=== PATIENT | female | born 1970 | race Caucasian/White ===

== ENCOUNTER 2023-12-03 11:53 | Emergency (ER) | payer OTHER, SELFPAY ==
[2023-12-03 12:01] VITALS: BP 146/99
[2023-12-03] MEDS: DECADRON 10 MG IV (13:37)
[2023-12-03] MEDS: TORADOL 15 MG IV (13:38)
[2023-12-03] MEDS: VALIUM INJECTION 5 MG IV (13:38)
[2023-12-03 13:40] VITALS: BP 133/83
[2023-12-03 14:00] VITALS: BP 131/84
--- NOTE | 2023-12-03 14:51 | ED.GENMED ---
History of Present Illness
General
Chief Complaint: Back Pain
Source: patient
Time Seen by Provider: 12/03/23 13:23
History of Present Illness
History of Present Illness:
53-year-old female presents complaining of left lower back pain worsening over the past several days. She tried lidocaine patches and cyclobenzaprine at home without any relief. No bowel or bladder dysfunction. No fever. No perianal anesthesia.
She denies any leg pain.
Past History
Past History
ED Past Medical History: GERD, HTN, Hypercholesterolemia and Other (Von Willebrand's disease)
ED Past Surgical History: Gynecological
Social History
Tobacco: Non-smoker
Alcohol: None
Drug: None
Personal:
Living: with family
Phy Exam
Physical Exam
Physical Exam:
General: Well-appearing female no acute respiratory
HEENT: Normocephalic atraumatic
Heart: Regular rate and rhythm no murmurs
Lungs: Clear no wheeze
Musculoskeletal exam: Patient is tender over the left paraspinous area of the lower lumbar spine and the SI joint. Good range of motion bilateral.
Neurological exam: Negative straight leg raise bilaterally. Good sensation and strength to the lower extremities bilaterally
Skin is warm no rash
Course
Orders/Labs/Results
Orders:
Orders
12/03/23 12:03
CR Lumbar Spine Comp Min 4 Vw* Urgent
Comment:
Reason For Exam: lower back pain
12/03/23 13:33
Dexamethasone Sod Phosphate [Decadron] 10 mg IV NOW STA
Ketorolac [Toradol] 15 mg IV NOW STA
diazePAM [Valium Injection] 5 mg IV NOW STA
Vital Signs
Initial and Last Documented VS:
Initial Vital Signs
Temp Pulse Resp BP Pulse Ox
98.1 F 99 20 146/99 98
12/03/23 12:01 12/03/23 12:01 12/03/23 12:01 12/03/23 12:01 12/03/23 12:01
Last Documented Vital Signs
Temp Pulse Resp BP Pulse Ox
98.1 F 99 20 131/84 96
12/03/23 12:01 12/03/23 12:01 12/03/23 12:01 12/03/23 14:00 12/03/23 14:45
MDM/Problems Addressed
Differential Diagnosis Includes:
Lower back pain. Consider muscular strain versus degenerative disc disease. X-rays reviewed through triage which are negative for acute finding but do demonstrate mild degenerative disease. Will try IV medication
*Critical Care Note
Total Time (30-74mins, 75-104mins- exclusive of procedures): Not Applicable
Update Note
Update Note:
Patient reevaluated after given medicine here and he is feeling much better. Do not suspect any cauda equina given the lack of red flag signs of saddle anesthesia bowel bladder dysfunction. Do not factious source.
ED Attending Note
-
Portions of this chart may have been created with voice recognition software.� Occasional wrong word or��sound alike� substitutions may have occurred due to the inherent limitations of voice recognition software.
Discharge Plan
Departure
Patient Disposition: Home (Routine Discharge)
Date of Disposition: 12/03/23
Time of Disposition: 14:54
Patient with high blood pressure during this ER visit?: No
Discharge Problem:
Low back pain
Instructions: Low Back Pain (DC)
Prescriptions:
New
diazepam [Valium] 5 mg tablet
5 mg PO TID PRN (Reason: muscle spasm) Qty: 10 0RF
prednisone 10 mg Tablet
See Rx Instructions .ROUTE .COMPLEX Qty: 30 0RF
Rx Instructions:
Take By Mouth:
40 mg daily x3 days, 30 mg daily x3 days,
20 mg daily x3 days, 10 mg daily x3 days.
No Action
ciprofloxacin HCl 750 mg tablet
750 mg PO DAILY 3 Days Qty: 3 0RF
fluconazole [Diflucan] 150 mg tablet
150 mg PO ONCE Qty: 1 0RF
lidocaine 4 % adhesive patch,medicated
1 patch topical DAILY PRN (Reason: Pain) Qty: 10 0RF
diazepam [Valium] 5 mg tablet
5 mg PO BID PRN (Reason: muscle spasm) Qty: 12 0RF
Referrals:
Deana Armas PA [Family Provider] -
Activity Restrictions/Additional Instructions:
Use medication as prescribed. Continue to apply warm compresses. Return for worsening symptoms otherwise follow-up with your doctor
Interventions
Interventions:
*Risk Screen - Suicide Last Done: 12/03/23 12:01
*General Assessment Last Done: 12/03/23 12:01
*Neglect/Abuse Screening Last Done: 12/03/23 12:01
ED-Musculoskeletal Assessment Last Done: 12/03/23 13:32
Discharge Date and Time
Print Language: [place] CITIZ[place]
== END 2023-12-03 15:15 | disposition home or self-care (01) ==
LOC: EMR 11:53
PROVIDERS: EMERGENCY PHYSICIAN Emergency Medicine; FAMILY PHYSICIAN Physician Assistant
DX: M54.50 Low back pain, unspecified (principal)
CPT/HCPCS: 99284; 96374; 96375 ×2; 72110

== ENCOUNTER → 2025-01-10 07:48 | Outpatient (REF) | payer OTHER, SELFPAY | LOC: RAD 07:48 | PROVIDERS: FAMILY PHYSICIAN Family Medicine | DX: R11.2 Nausea with vomiting, unspecified (principal) | CPT/HCPCS: 78264; A9541 ==